=== PATIENT | female | born 1985 | race African-American/Black ===

== ENCOUNTER 2017-12-21 04:57 | Emergency (ER) | payer SELFPAY ==
[~2017-12-21] VITALS: Ht 162.6 cm; Wt 54.4 kg
[~2017-12-21 04:57] MED LIST: FAMO-63 PO; HYDR-971 PO; HYOS0.1264 PO; ONDA4TAB10 PO
[2017-12-21 05:00] VITALS: BP 131/79
--- NOTE | 2017-12-21 05:00 | ED.ADGEN ---
Past History Past Medical History: No Pertinent History (JOSE REESE MD) Past Surgical History: No Surgical History (JOSE REESE MD) Alcohol Use: None Drug Use: None (JOSE REESE MD) Adult General Chief Complaint Chief Complaint " I feel like I got some plastic stuck in my throat.. " .." I was eating some steak about 11 (PM) there was small piece of plastic on side of plate.. and about hour later .. I vomited up some steak.. .. And then I got worried and started looking for the plastic I couldn't find it... I felt like there is some plastic in my throat and I tried to dig it out... It still feels like it is there..( pt. points area above thyroid).. I made my self eat some bread.. I ve got a really sensitive stomach..." (JOSE REESE MD) HPI HPI Patient is a 32 year old female who presents with above hx and complaints of this patient after vomiting up some steak. Patient feels as if she has some plastic stuck in her throat and states she can see it. Patient has abrasions to the back of the throat where she has attempted to remove plastic that she seen in her throat. Patient has a history of "sensitive stomach ''. Patient denies previous history of dysphagia. Patient is very anxious. Patient's upper airway was critically visualized with glides scope. No obvious foreign body to the level of vocal cords. No stridor appreciated on auscultation. Patient denies any specific ill contacts. Patient denies any travel. Patient denies any immunosuppression. Patient does smoke tobacco. (JOSE REESE MD) Review of Systems Review of Systems Constitutional: Denies fever or chills [] Eyes: Denies change in visual acuity, redness, or eye pain [] HENT: Denies nasal congestion or sore throat [] Respiratory: Denies cough or shortness of breath [] Cardiovascular: No additional information not addressed in HPI [] GI: Denies abdominal pain, bloody stools or diarrhea []complaints of vomiting and nausea and difficulty swallowing : Denies dysuria or hematuria [] Musculoskeletal: Denies back pain or joint pain [] Integument: Denies rash or skin lesions [] Neurologic: Denies headache, focal weakness or sensory changes [] Endocrine: Denies polyuria or polydipsia [] All other systems were reviewed and found to be within normal limits, except as documented in this note. (JOSE REESE MD) Family History Family History Noncontributory to presentation (JOSE REESE MD) Current Medications Current Medications Current Medications Medications (Trade) Dose Ordered Sig/Db Start Time Stop Time Status Last Admin Dose Admin Benzocaine (Hurricaine One) 1 spray 1X ONCE 12/21/17 05:45 12/21/17 05:51 DC 12/21/17 05:05 1 SPRAY Famotidine (Pepcid Vial) 20 mg 1X ONCE 12/21/17 06:00 12/21/17 06:01 DC 12/21/17 06:00 20 MG Info (Do NOT chart on this entry -- for MONITORING) 1 each PRN DAILY PRN 12/21/17 05:30 12/21/17 06:47 DC Iohexol (Omnipaque 240 Mg/ml) 50 ml 1X ONCE 12/21/17 06:30 12/21/17 06:35 DC 12/21/17 06:31 50 ML Ondansetron HCl (Zofran) 4 mg 1X ONCE 12/21/17 06:00 12/21/17 06:01 DC 12/21/17 06:00 4 MG (AUDELIA FAY MD) Current Medications See nursing for home meds (JOSE REESE MD) Allergies Allergies Allergies Coded Allergies Type Severity Reaction Last Updated Verified No Known Drug Allergies 05/29/16 No (AUDELIA FAY MD) Physical Exam Physical Exam Constitutional: Well developed, well nourished, in acute emotional distress, non -toxic appearance. [] HENT: Normocephalic, atraumatic, bilateral external ears normal, oropharynx moist, pharyngeal erythema where she has attempted to remove reported plastic, no oral exudates, nose normal. [] Eyes: PERRLA, EOMI, conjunctiva normal, no discharge. [] Neck: Normal range of motion, no tenderness, supple, no stridor. [] Cardiovascular:Heart rate regular rhythm, no murmur [] Lungs & Thorax: Bilateral breath sounds equal apex with scattered wheezes auscultation [] Abdomen: Bowel sounds normal, soft, no tenderness, no masses, no pulsatile masses. [] Skin: Warm, dry, no erythema, no rash. [] Back: No tenderness, no CVA tenderness. [] Extremities: No tenderness, no cyanosis, no clubbing, ROM intact, no edema. [] Neurologic: Alert and oriented X 3, normal motor function, normal sensory function, no focal deficits noted. [] Psychologic: Affect very anxious, judgement normal, mood normal. [] (JOSE REESE MD) Current Patient Data Vital Signs Vital Signs Date Time Temp Pulse Resp B/P (MAP) Pulse Ox O2 Delivery O2 Flow Rate FiO2 12/21/17 05:00 97.3 22 99 Room Air (AUDELIA FAY MD) Lab Results Laboratory Tests Test 12/21/17 05:20 12/21/17 05:30 12/21/17 05:34 White Blood Count 8.9 x10^3/uL (4.0-11.0) Red Blood Count 4.75 x10^6/uL (3.50-5.40) Hemoglobin 13.2 g/dL (12.0-15.5) Hematocrit 39.8 % (36.0-47.0) Mean Corpuscular Volume 84 fL (79-100) Mean Corpuscular Hemoglobin 28 pg (25-35) Mean Corpuscular Hemoglobin Concent 33 g/dL (31-37) Red Cell Distribution Width 14.1 % (11.5-14.5) Platelet Count 262 x10^3/uL (140-400) Neutrophils (%) (Auto) 83 % (31-73) H Lymphocytes (%) (Auto) 9 % (24-48) L Monocytes (%) (Auto) 8 % (0-9) Eosinophils (%) (Auto) 0 % (0-3) Basophils (%) (Auto) 0 % (0-3) Neutrophils # (Auto) 7.3 x10^3uL (1.8-7.7) Lymphocytes # (Auto) 0.8 x10^3/uL (1.0-4.8) L Monocytes # (Auto) 0.7 x10^3/uL (0.0-1.1) Eosinophils # (Auto) 0.0 x10^3/uL (0.0-0.7) Basophils # (Auto) 0.0 x10^3/uL (0.0-0.2) Prothrombin Time 11.0 SEC (9.4-11.4) Prothrombin Time INR 1.1 (0.9-1.1) PTT 23 SEC (23-33) Sodium Level 141 mmol/L (136-145) Potassium Level 3.1 mmol/L (3.5-5.1) L Chloride Level 103 mmol/L (98-107) Carbon Dioxide Level 27 mmol/L (21-32) Anion Gap 11 (6-14) Blood Urea Nitrogen 11 mg/dL (7-20) Creatinine 0.7 mg/dL (0.6-1.0) Estimated GFR (Cockcroft-Gault) 118.1 Glucose Level 115 mg/dL (70-99) H Calcium Level 8.7 mg/dL (8.5-10.1) Total Bilirubin 0.2 mg/dL (0.2-1.0) Direct Bilirubin 0.1 mg/dL (0.0-0.2) Aspartate Amino Transferase (AST) 20 U/L (15-37) Alanine Aminotransferase (ALT) 25 U/L (14-59) Alkaline Phosphatase 43 U/L (46-116) L Total Protein 7.5 g/dL (6.4-8.2) Albumin 3.9 g/dL (3.4-5.0) Lipase 150 U/L (73-393) Urine Collection Type Unknown Urine Color Una Urine Clarity Hazy Urine pH 7.0 Urine Specific [place] 1.020 Urine Protein 100 mg/dl (NEG-TRACE) Urine Glucose (UA) Neg mg/dL (NEG) Urine Ketones (Stick) Trace mg/dL (NEG) Urine Blood Neg (NEG) Urine Nitrite Neg (NEG) Urine Bilirubin Neg (NEG) Urine Urobilinogen Dipstick 1 mg/dL (0.2 mg/dL) Urine Leukocyte Esterase Neg (NEG) Urine RBC Rare /HPF (0-2) Urine WBC Rare /HPF (0-4) Urine Squamous Epithelial Cells Many /LPF Urine Transitional Epithelial Cells /LPF Urine Bacteria Few /HPF (0-FEW) Urine Mucus Mod /LPF Urine Opiates Screen Neg (NEG) Urine Methadone Screen Neg (NEG) Urine Barbiturates Neg (NEG) Urine Phencyclidine Screen Neg (NEG) Urine Amphetamine/Methamphetamine Pos (NEG) Urine Benzodiazepines Screen Neg (NEG) Urine Cocaine Screen Pos (NEG) Urine Cannabinoids Screen Neg (NEG) Urine Ethyl Alcohol Neg (NEG) POC Urine HCG, Qualitative hcg negative (Negative) (AUDELIA FAY MD) Lab Results Laboratory Tests Test 12/21/17 05:20 12/21/17 05:30 12/21/17 05:34 White Blood Count 8.9 x10^3/uL (4.0-11.0) Red Blood Count 4.75 x10^6/uL (3.50-5.40) Hemoglobin 13.2 g/dL (12.0-15.5) Hematocrit 39.8 % (36.0-47.0) Mean Corpuscular Volume 84 fL (79-100) Mean Corpuscular Hemoglobin 28 pg (25-35) Mean Corpuscular Hemoglobin Concent 33 g/dL (31-37) Red Cell Distribution Width 14.1 % (11.5-14.5) Platelet Count 262 x10^3/uL (140-400) Neutrophils (%) (Auto) 83 % (31-73) H Lymphocytes (%) (Auto) 9 % (24-48) L Monocytes (%) (Auto) 8 % (0-9) Eosinophils (%) (Auto) 0 % (0-3) Basophils (%) (Auto) 0 % (0-3) Neutrophils # (Auto) 7.3 x10^3uL (1.8-7.7) Lymphocytes # (Auto) 0.8 x10^3/uL (1.0-4.8) L Monocytes # (Auto) 0.7 x10^3/uL (0.0-1.1) Eosinophils # (Auto) 0.0 x10^3/uL (0.0-0.7) Basophils # (Auto) 0.0 x10^3/uL (0.0-0.2) Prothrombin Time 11.0 SEC (9.4-11.4) Prothrombin Time INR 1.1 (0.9-1.1) PTT 23 SEC (23-33) Sodium Level 141 mmol/L (136-145) Potassium Level 3.1 mmol/L (3.5-5.1) L Chloride Level 103 mmol/L (98-107) Carbon Dioxide Level 27 mmol/L (21-32) Anion Gap 11 (6-14) Blood Urea Nitrogen 11 mg/dL (7-20) Creatinine 0.7 mg/dL (0.6-1.0) Estimated GFR (Cockcroft-Gault) 118.1 Glucose Level 115 mg/dL (70-99) H Calcium Level 8.7 mg/dL (8.5-10.1) Total Bilirubin 0.2 mg/dL (0.2-1.0) Direct Bilirubin 0.1 mg/dL (0.0-0.2) Aspartate Amino Transferase (AST) 20 U/L (15-37) Alanine Aminotransferase (ALT) 25 U/L (14-59) Alkaline Phosphatase 43 U/L (46-116) L Total Protein 7.5 g/dL (6.4-8.2) Albumin 3.9 g/dL (3.4-5.0) Lipase 150 U/L (73-393) Urine Opiates Screen Neg (NEG) Urine Methadone Screen Neg (NEG) Urine Barbiturates Neg (NEG) Urine Phencyclidine Screen Neg (NEG) Urine Amphetamine/Methamphetamine Pos (NEG) Urine Benzodiazepines Screen Neg (NEG) Urine Cocaine Screen Pos (NEG) Urine Cannabinoids Screen Neg (NEG) Urine Ethyl Alcohol Neg (NEG) POC Urine HCG, Qualitative hcg negative (Negative) (JOSE REESE MD) EKG EKG [] (JOSE REESE MD) Radiology/Procedures Radiology/Procedures My interpretation of chest and acute abdomen shows no acute cardiopulmonary findings. Does have findings of increased stool. Does appear to have contrast and stomach after swallow.[] (JOSE REESE MD) Course & Med Decision Making Course & Med Decision Making Pertinent Labs and Imaging studies reviewed. (See chart for details). Labs x-rays pending at time shift change to 600- check out to Dr. Fay [] (JOSE REESE MD) Course & Med Decision Making Evaluation of patient in ER showed 32-year-old female patient complaining of foreign body sensation in esophagus area and concern for having a piece of plastic her esophagus. Patient was able to swallow her saliva without any problem. Patient was anxious and had positive methamphetamine and cocaine in her UDS. Plan discharge patient home with diagnose of foreign body sensation and substance abuse. (AUDELIA FAY MD) Final Impression Final Impression 1. Nausea and vomiting 2. Dysphasia[] 3. Constipation 4. Hypokalemia 5. + Drug screen Cocaine and Meth/Amp. Problems: (JOSE REESE MD) Dragon Disclaimer Dragon Disclaimer This electronic medical record was generated, in whole or in part, using a voice recognition dictation system. (JOSE REESE MD) Departure: Impression: Primary Impression: Sensation of foreign body in esophagus Additional Impressions: Methamphetamine abuse Cocaine abuse Hypokalemia Tobacco abuse Tobacco abuse counseling Disposition: HOME, SELF-CARE (At 0620) Condition: IMPROVED Patient Instructions: Dysphagia, Hypokalemia, Smoking Cessation, Tips For Success Additional Instructions: Take liquid diet for 48 hours Follow up with your doctor in 2-3 days if not getting better JOSE REESE MD Dec 21, 2017 05:00 AUDELIA FAY MD Dec 21, 2017 06:25
[2017-12-21] MEDS ORDERED: CONTRAST GIVEN MC PRN (05:30)
[2017-12-21] MEDS ORDERED: BENZOCAINE ONE 20% MUCOSAL SPRAY. MM (05:45)
[2017-12-21 05:47] LABS: BASO % 0 % (0-3); EOS % 0 % (0-3); HEMATOCRIT 39.8 % (36.0-47.0); HEMOGLOBIN 13.2 g/dL (12.0-15.5); LYMPH # 0.8 x10^3/uL (1.0-4.8); LYMPH % 9 % (24-48); MEAN CORPUSCULAR HEMOGLOBIN 28 pg (25-35); MEAN CORPUSCULAR HGB CONC 33 g/dL (31-37); MEAN CORPUSCULAR VOLUME 84 fL (79-100); MONO # 0.7 x10^3/uL (0.0-1.1); MONO % 8 % (0-9); NEUT # 7.3 x10^3uL (1.8-7.7); NEUT % 83 % (31-73); PLATELET COUNT 262 x10^3/uL (140-400); RED BLOOD COUNT 4.75 x10^6/uL (3.50-5.40); RED CELL DISTRIBUTION WIDTH 14.1 % (11.5-14.5); WHITE BLOOD COUNT 8.9 x10^3/uL (4.0-11.0)
[2017-12-21] MEDS ORDERED: IOHEXOL 240 MG/ML 50ML VIAL. ONE (05:47)
[2017-12-21] MEDS ORDERED: FAMOTIDINE 20 MG/2 ML VIAL IVP ONE (06:00)
[2017-12-21] MEDS ORDERED: ONDANSETRON PF 4 MG/2 ML VIAL. IV ONE (06:00)
[2017-12-21 06:02] LABS: ALBUMIN 3.9 g/dL (3.4-5.0); CALCIUM 8.7 mg/dL (8.5-10.1); CREATININE 0.7 mg/dL (0.6-1.0); DIRECT BILIRUBIN 0.1 mg/dL (0.0-0.2); GFR 118.1; POTASSIUM 3.1 mmol/L (3.5-5.1); TOTAL BILIRUBIN 0.2 mg/dL (0.2-1.0); TOTAL PROTEIN 7.5 g/dL (6.4-8.2)
[2017-12-21 06:05] LABS: BARBITURATES NEG (NEG); BENZODIAZEPINES NEG (NEG); CANNABINOIDS NEG (NEG); COCAINE POS (NEG); METHADONE NEG (NEG); OPIATES NEG (NEG); PHENCYCLIDINE NEG (NEG)
[2017-12-21 06:06] LABS: AMPHETAMINE/METHAMPHETAMINE POS (NEG)
[2017-12-21 06:28] LABS: BACTERIA,URINE FEW /HPF (0-FEW); BILIRUBIN,URINE NEG (NEG); CLARITY,URINE HAZY; COLOR,URINE AMBER; GLUCOSE,URINE NEG (NEG); NITRITE,URINE NEG (NEG); RBC,URINE RARE /HPF (0-2); SQUAMOUS EPITHELIAL CELL,UR MANY /LPF; UROBILINOGEN,URINE 1 mg/dL (0.2 mg/dL); WBC,URINE RARE /HPF (0-4)
[2017-12-21] MEDS ORDERED: IOHEXOL 240 MG/ML 50ML VIAL. PO ONE (06:30)
--- NOTE | 2017-12-21 07:11 | RAD ---
Abdomen, 2 views, 12/21/2017: History: Vomiting, possible ingested foreign body Reportedly the patient was given a small amount of Omnipaque 240 or early prior to obtaining these images. Contrast is faintly visible in the stomach. The abdominal gas pattern is unremarkable. No free air is present in the abdomen. There is no evidence of organomegaly. No radiopaque foreign body is evident. The lung bases are clear. IMPRESSION: No significant abnormality is detected.
--- NOTE | 2017-12-21 07:12 | RAD ---
Chest, 2 views, 12/21/1999 813: History: Vomiting, possible ingested foreign body The heart size is normal. The lungs are clear. There is no evidence of pleural fluid or pneumothorax. No radiopaque foreign body is evident. IMPRESSION: No significant abnormality is detected.
== END 2017-12-21 06:36 | disposition home or self-care (01) ==
LOC: ER 04:57
DX: R11.2 Nausea with vomiting, unspecified (principal); R47.02 Dysphasia; E87.6 Hypokalemia; S10.11XA Abrasion of throat, initial encounter; K59.00 Constipation, unspecified; F14.10 Cocaine abuse, uncomplicated; F15.10 Other stimulant abuse, uncomplicated; F17.200 Nicotine dependence, unspecified, uncomplicated; X58.XXXA Exposure to other specified factors, initial encounter; Y93.89 Activity, other specified; Y92.89 Other specified places as the place of occurrence of the external cause; Y99.8 Other external cause status
CPT/HCPCS: 36415; 71046; 74021; 80048; 80076; 80307; 81001; 81025; 83690; 85025; 85610; 85730; 96374; 96375; 99285; J2405; Q9966; S0028; G0479